=== PATIENT | male | born 1985 | race African-American/Black ===

== ENCOUNTER 2018-01-10 02:37 | Inpatient (IN) | payer BC ==
[2018-01-10] MEDS: IV NORMAL SALINE 1000ML BAG 2,250 ML IV ×3 (05:39→23:00)
[2018-01-10 05:54] LABS: BASO # 0.1 x10^3/uL (0.0-0.2); BASO % 0 % (0-3); EOS % 0 % (0-3); HEMATOCRIT 40.8 % (39.0-53.0); HEMOGLOBIN 13.5 g/dL (13.0-17.5); LYMPH # 1.6 x10^3/uL (1.0-4.8); LYMPH % 6 % (24-48); MEAN CORPUSCULAR HEMOGLOBIN 28 pg (25-35); MEAN CORPUSCULAR HGB CONC 33 g/dL (31-37); MEAN CORPUSCULAR VOLUME 85 fL (79-100); MONO # 2.2 x10^3/uL (0.0-1.1); MONO % 9 % (0-9); NEUT # 20.8 x10^3uL (1.8-7.7); NEUT % 84 % (31-73); PLATELET COUNT 225 x10^3/uL (140-400); RED BLOOD COUNT 4.82 x10^6/uL (4.30-5.70); RED CELL DISTRIBUTION WIDTH 13.3 % (11.5-14.5); WHITE BLOOD COUNT 24.7 x10^3/uL (4.0-11.0)
[2018-01-10 05:57] LABS: ADD MAN DIFF? YES
[2018-01-10] MEDS ORDERED: PIP/TAZO PER PHARMACY MC (06:00)
[2018-01-10 06:08] LABS: ANION GAP 12 (6-14); BLOOD UREA NITROGEN 12 mg/dL (8-26); BUN/CREATININE RATIO 9 (6-20); CALCIUM 8.9 mg/dL (8.5-10.1); CARBON DIOXIDE 23 mmol/L (21-32); CHLORIDE 103 mmol/L (98-107); CREATININE 1.3 mg/dL (0.7-1.3); GFR 78.4; GLUCOSE 117 mg/dL (70-99); SODIUM 138 mmol/L (136-145)
[2018-01-10] MEDS: PIPERACILLIN/TAZOBACTAM 3.375 GM in IV NORMAL SALINE 50ML 50 ML IV ×3 (06:14→17:00)
[2018-01-10 06:15] LABS: LACTIC ACID 1.5 mmol/L (0.4-2.0)
[2018-01-10 06:22] LABS: ALBUMIN 3.4 g/dL (3.4-5.0); ALBUMIN/GLOBULIN RATIO 0.8 (1.0-1.7); ALK PHOS 110 U/L (46-116); ALT (SGPT) 41 U/L (16-63); AST (SGOT) 25 U/L (15-37); TOTAL BILIRUBIN 0.9 mg/dL (0.2-1.0); TOTAL PROTEIN 7.5 g/dL (6.4-8.2)
[2018-01-10] MEDS ORDERED: ONDANSETRON PF 4 MG/2 ML VIAL. IV ×2 (06:30→14:00)
[2018-01-10] MEDS ORDERED: CONTRAST GIVEN MC (06:30)
[2018-01-10] MEDS: IOHEXOL 300 MG/ML 100ML VIAL. IV (06:41)
[2018-01-10 06:45] LABS: BILIRUBIN,URINE NEGATIVE (NEG); CLARITY,URINE CLEAR; COLOR,URINE YELLOW; GLUCOSE,URINE NEGATIVE (NEG); NITRITE,URINE NEGATIVE (NEG); PROTEIN,URINE NEGATIVE (NEG-TRACE)
[2018-01-10 07:01] LABS: BACTERIA,URINE 0 /HPF (0-FEW)
[2018-01-10 07:02] LABS: SQUAMOUS EPITHELIAL CELL,UR FEW /LPF
[2018-01-10] MEDS: VANCOMYCIN 2 GM in IV 1/2 NORMAL SALINE 500 ML IV (07:05)
[2018-01-10 08:30] LABS: PLT ESTIMATE ADEQUATE (ADEQUATE)
[2018-01-10 08:43] LABS: % BANDS 1 % (0-9); % SEGS 89 % (35-66)
[2018-01-10 08:44] LABS: % LYMPHS 4 % (24-48); % MONOS 6 % (0-10)
[2018-01-10] MEDS: VANCOMYCIN PER PHARMACY MC (09:47)
[2018-01-10] MEDS: IV NORMAL SALINE 1000ML BAG 1,000 ML IV ×5 (10:40→23:00)
[2018-01-10] MEDS: ACETAMINOPHEN 325 MG TABLET. PO (11:17)
[2018-01-10] MEDS: fentaNYL PF VIAL 100 MCG/2 ML VIAL IV ×3 (13:04→19:47)
[2018-01-10] MEDS: CLINDAMYCIN 600MG PREMIX 50 ML IV ×3 (13:35→22:56)
[2018-01-10] MEDS ORDERED: traMADol 50 MG TABLET PO (14:00)
[2018-01-10] MEDS ORDERED: DOCUSATE SODIUM 100 MG CAPSULE. PO (14:00)
[2018-01-10 14:41] LABS: CREATINE KINASE 368 U/L (39-308)
[2018-01-10 14:41] LABS: C-REACTIVE PROTEIN 188.6 mg/L (0-3.3)
[2018-01-10] MEDS: ENOXAPARIN 40 MG/0.4 ML SYRINGE. SQ (15:02)
[2018-01-10] MEDS: VANCOMYCIN 1.5 GM in IV 1/2 NORMAL SALINE 500 ML IV ×2 (15:02→22:57)
[2018-01-10 15:21] LABS: SEDIMENTATION RATE 50 (0-15)
[2018-01-10 16:49] LABS: PROCALCITONIN 0.32 ng/mL (0.00-0.10)
[2018-01-10] MEDS: LACTOBACILLUS RHAMNOSUS GG 1 CAPSULE. PO (19:45)
[2018-01-10] MEDS: MORPHINE SULFATE 4 MG/ML DISP.SYRIN. IV (22:57)
[2018-01-11] MEDS: PIPERACILLIN/TAZOBACTAM 3.375 GM in IV NORMAL SALINE 50ML 50 ML IV ×4 (00:46→17:55)
[2018-01-11] MEDS: IV NORMAL SALINE 1000ML BAG 1,000 ML IV ×3 (02:22→12:04)
[2018-01-11] MEDS: fentaNYL PF VIAL 100 MCG/2 ML VIAL IV ×3 (03:06→17:14)
[2018-01-11] MEDS: ACETAMINOPHEN 325 MG TABLET. PO (03:12)
[2018-01-11] MEDS: CLINDAMYCIN 600MG PREMIX 50 ML IV ×3 (06:19→21:36)
[2018-01-11] MEDS: MORPHINE SULFATE 4 MG/ML DISP.SYRIN. IV ×4 (06:19→17:21)
[2018-01-11 06:41] LABS: ADD MAN DIFF? NO
[2018-01-11 06:58] LABS: ANION GAP 10 (6-14); BLOOD UREA NITROGEN 9 mg/dL (8-26); CALCIUM 8.2 mg/dL (8.5-10.1); CARBON DIOXIDE 25 mmol/L (21-32); CHLORIDE 101 mmol/L (98-107); CREATININE 1.3 mg/dL (0.7-1.3); GFR 78.4; GLUCOSE 135 mg/dL (70-99); POTASSIUM 3.4 mmol/L (3.5-5.1); SODIUM 136 mmol/L (136-145)
[2018-01-11 07:15] LABS: VANC TR 12.5 mcg/mL (10.0-20.0)
[2018-01-11 07:22] LABS: BASO # 0.1 x10^3/uL (0.0-0.2); BASO % 0 % (0-3); EOS # 0.1 x10^3/uL (0.0-0.7); EOS % 0 % (0-3); HEMOGLOBIN 11.5 g/dL (13.0-17.5); LYMPH # 1.7 x10^3/uL (1.0-4.8); LYMPH % 8 % (24-48); MEAN CORPUSCULAR HEMOGLOBIN 28 pg (25-35); MEAN CORPUSCULAR HGB CONC 33 g/dL (31-37); MEAN CORPUSCULAR VOLUME 85 fL (79-100); MONO # 1.9 x10^3/uL (0.0-1.1); MONO % 9 % (0-9); NEUT # 17.4 x10^3uL (1.8-7.7); NEUT % 82 % (31-73); PLATELET COUNT 205 x10^3/uL (140-400); RED CELL DISTRIBUTION WIDTH 13.3 % (11.5-14.5); WHITE BLOOD COUNT 21.2 x10^3/uL (4.0-11.0)
[2018-01-11] MEDS: oxyCODONE/APAP 5/325 1 TAB TABLET PO (09:16)
[2018-01-11] MEDS: LACTOBACILLUS RHAMNOSUS GG 1 CAPSULE. PO ×2 (09:16→21:36)
[2018-01-11] MEDS: VANCOMYCIN 1.5 GM in IV 1/2 NORMAL SALINE 500 ML IV ×3 (09:16→22:50)
[2018-01-11] MEDS ORDERED: POTASSIUM CHLORIDE 20 MEQ TABLET.ER. PO (11:00)
[2018-01-11 11:22] LABS: CREATINE KINASE 231 U/L (39-308)
[2018-01-11] MEDS ORDERED: ONDANSETRON PF 4 MG/2 ML VIAL. IV (12:00)
[2018-01-11] MEDS ORDERED: LIDOCAINE 1% PF 2 ML VIAL. ID (12:00)
[2018-01-11] MEDS ORDERED: fentaNYL PF VIAL 100 MCG/2 ML VIAL IV ×2 (12:00→16:15)
[2018-01-11] MEDS ORDERED: HYDROmorphone 2 MG/ML VIAL IV (12:00)
[2018-01-11] MEDS ORDERED: PROCHLORPERAZINE 10 MG/2 ML VIAL. IV (12:00)
[2018-01-11] MEDS ORDERED: PROPOFOL 20 ML IV (14:13)
[2018-01-11] MEDS ORDERED: fentaNYL PF VIAL 100 MCG/2 ML VIAL ×2 (14:13→15:40)
[2018-01-11] MEDS: IV RINGERS,LACTATED 1000ML 1,000 ML IV (14:16)
[2018-01-11] MEDS: VANCOMYCIN PER PHARMACY MC (14:23)
[2018-01-11] MEDS ORDERED: DEXAMETHASONE SOD PHOS 20 MG/5 ML VIAL. (15:20)
[2018-01-11] MEDS ORDERED: SEVOFLURANE 31 TO 60 MINUTES. IH (15:20)
[2018-01-11] MEDS ORDERED: ONDANSETRON PF 4 MG/2 ML VIAL. (15:20)
[2018-01-11] MEDS: BUPIVACAINE-EPI 0.25%-1:200000 50 ML VIAL. (15:35)
[2018-01-11] MEDS ORDERED: HYDROcodone/APAP 7.5/325MG 1 TAB TABLET PO (16:15)
[2018-01-11] MEDS ORDERED: MORPHINE SULFATE 4 MG/ML DISP.SYRIN. IV ×2 (16:15)
[2018-01-11] MEDS ORDERED: oxyCODONE IR 5 MG TABLET PO (16:15)
[2018-01-11] MEDS ORDERED: POLYETHYLENE GLYCOL 3350 17 GM PACKET. PO (16:15)
[2018-01-11] MEDS ORDERED: DEXTROSE 50% 25 GM / 50ML DISP.SYRIN. IV (16:15)
[2018-01-11] MEDS: POTASSIUM CHLORIDE 20 MEQ TABLET.ER. PO (17:54)
[2018-01-11] MEDS: ENOXAPARIN 40 MG/0.4 ML SYRINGE. SQ (17:54)
[2018-01-11] MEDS: oxyCODONE IR 5 MG TABLET PO (21:40)
[2018-01-12] MEDS: PIPERACILLIN/TAZOBACTAM 3.375 GM in IV NORMAL SALINE 50ML 50 ML IV ×5 (00:54→23:53)
[2018-01-12] MEDS: oxyCODONE IR 5 MG TABLET PO ×2 (00:56→06:49)
[2018-01-12] MEDS: IV NORMAL SALINE 1000ML BAG 1,000 ML IV ×3 (03:29→15:06)
[2018-01-12] MEDS ORDERED: MAGNESIUM HYDROXIDE 2,400 MG/30 ML ORAL.SUSP. PO (06:00)
[2018-01-12] MEDS: CLINDAMYCIN 600MG PREMIX 50 ML IV ×3 (06:11→21:53)
[2018-01-12] MEDS: VANCOMYCIN 1.5 GM in IV 1/2 NORMAL SALINE 500 ML IV (07:31)
[2018-01-12] MEDS: LACTOBACILLUS RHAMNOSUS GG 1 CAPSULE. PO ×2 (08:18→20:29)
[2018-01-12] MEDS: SENNOSIDES/DOCUSATE 8.6/50MG TABLET. PO (08:18)
[2018-01-12 09:53] LABS: ADD MAN DIFF? NO
[2018-01-12 09:59] LABS: BASO % 0 % (0-3); EOS % 0 % (0-3); HEMATOCRIT 36.7 % (39.0-53.0); HEMOGLOBIN 11.7 g/dL (13.0-17.5); LYMPH # 1.3 x10^3/uL (1.0-4.8); LYMPH % 6 % (24-48); MEAN CORPUSCULAR HEMOGLOBIN 28 pg (25-35); MEAN CORPUSCULAR HGB CONC 32 g/dL (31-37); MEAN CORPUSCULAR VOLUME 86 fL (79-100); MONO # 1.9 x10^3/uL (0.0-1.1); MONO % 8 % (0-9); NEUT # 20.8 x10^3uL (1.8-7.7); NEUT % 87 % (31-73); PLATELET COUNT 246 x10^3/uL (140-400); RED BLOOD COUNT 4.27 x10^6/uL (4.30-5.70); RED CELL DISTRIBUTION WIDTH 13.4 % (11.5-14.5)
[2018-01-12] MEDS: fentaNYL PF VIAL 100 MCG/2 ML VIAL IV (11:04)
[2018-01-12 11:41] LABS: ANION GAP 12 (6-14); BLOOD UREA NITROGEN 22 mg/dL (8-26); CALCIUM 7.8 mg/dL (8.5-10.1); CARBON DIOXIDE 24 mmol/L (21-32); CHLORIDE 104 mmol/L (98-107); CREATININE 2.4 mg/dL (0.7-1.3); GFR 38.7; GLUCOSE 120 mg/dL (70-99); POTASSIUM 4.7 mmol/L (3.5-5.1); SODIUM 140 mmol/L (136-145)
[2018-01-12] MEDS: VANCOMYCIN PER PHARMACY MC (14:05)
[2018-01-12] MEDS: ENOXAPARIN 40 MG/0.4 ML SYRINGE. SQ (15:00)
[2018-01-12] MEDS ORDERED: BISACODYL 10 MG SUPP.RECT. PR (16:00)
[2018-01-12] MEDS: oxyCODONE/APAP 5/325 1 TAB TABLET PO (20:30)
[2018-01-13] MEDS: IV NORMAL SALINE 1000ML BAG 1,000 ML IV ×3 (02:25→22:21)
[2018-01-13] MEDS: oxyCODONE/APAP 5/325 1 TAB TABLET PO ×2 (02:32→17:22)
[2018-01-13] MEDS: CLINDAMYCIN 600MG PREMIX 50 ML IV (05:28)
[2018-01-13] MEDS: PIPERACILLIN/TAZOBACTAM 3.375 GM in IV NORMAL SALINE 50ML 50 ML IV (06:14)
[2018-01-13] MEDS: IV RINGERS,LACTATED 1000ML 1,000 ML IV (07:00)
[2018-01-13] MEDS ORDERED: MORPHINE SULFATE 2 MG/ML DISP.SYRIN. IV (07:00)
[2018-01-13] MEDS ORDERED: fentaNYL PF VIAL 100 MCG/2 ML VIAL IV ×2 (07:00→14:45)
[2018-01-13] MEDS ORDERED: LIDOCAINE 1% PF 2 ML VIAL. ID (07:00)
[2018-01-13] MEDS ORDERED: PROCHLORPERAZINE 10 MG/2 ML VIAL. IV (07:00)
[2018-01-13] MEDS ORDERED: ONDANSETRON PF 4 MG/2 ML VIAL. IV ×2 (07:00→14:45)
[2018-01-13] MEDS: LACTOBACILLUS RHAMNOSUS GG 1 CAPSULE. PO ×2 (09:00→20:56)
[2018-01-13] MEDS: SENNOSIDES/DOCUSATE 8.6/50MG TABLET. PO ×2 (09:00→17:21)
[2018-01-13] MEDS: CEFEPIME HCL IV Push 1 GM VIAL. IVP ×2 (09:00→20:57)
[2018-01-13 09:45] LABS: ADD MAN DIFF? NO
[2018-01-13 10:00] LABS: BASO % 0 % (0-3); EOS # 0.1 x10^3/uL (0.0-0.7); EOS % 0 % (0-3); HEMATOCRIT 35.3 % (39.0-53.0); HEMOGLOBIN 11.6 g/dL (13.0-17.5); LYMPH # 1.9 x10^3/uL (1.0-4.8); LYMPH % 9 % (24-48); MEAN CORPUSCULAR HEMOGLOBIN 28 pg (25-35); MEAN CORPUSCULAR HGB CONC 33 g/dL (31-37); MEAN CORPUSCULAR VOLUME 86 fL (79-100); MONO # 1.7 x10^3/uL (0.0-1.1); MONO % 9 % (0-9); NEUT # 16.5 x10^3uL (1.8-7.7); NEUT % 82 % (31-73); PLATELET COUNT 266 x10^3/uL (140-400); RED BLOOD COUNT 4.13 x10^6/uL (4.30-5.70); RED CELL DISTRIBUTION WIDTH 13.3 % (11.5-14.5); WHITE BLOOD COUNT 20.2 x10^3/uL (4.0-11.0)
[2018-01-13 10:15] LABS: ALBUMIN 2.1 g/dL (3.4-5.0); ALBUMIN/GLOBULIN RATIO 0.5 (1.0-1.7); ALK PHOS 87 U/L (46-116); ALT (SGPT) 48 U/L (16-63); ANION GAP 14 (6-14); AST (SGOT) 32 U/L (15-37); BLOOD UREA NITROGEN 35 mg/dL (8-26); BUN/CREATININE RATIO 11 (6-20); CALCIUM 7.6 mg/dL (8.5-10.1); CARBON DIOXIDE 21 mmol/L (21-32); CHLORIDE 108 mmol/L (98-107); CREATININE 3.3 mg/dL (0.7-1.3); GFR 26.8; GLUCOSE 92 mg/dL (70-99); POTASSIUM 3.8 mmol/L (3.5-5.1); SODIUM 143 mmol/L (136-145); TOTAL BILIRUBIN 0.7 mg/dL (0.2-1.0); TOTAL PROTEIN 6.6 g/dL (6.4-8.2)
[2018-01-13] MEDS ORDERED: DEXAMETHASONE SOD PHOS 20 MG/5 ML VIAL. (12:27)
[2018-01-13] MEDS ORDERED: PROPOFOL 40 ML IV (12:27)
[2018-01-13] MEDS ORDERED: ONDANSETRON PF 4 MG/2 ML VIAL. (12:27)
[2018-01-13] MEDS ORDERED: fentaNYL PF VIAL 100 MCG/2 ML VIAL ×3 (12:27→15:36)
[2018-01-13] MEDS ORDERED: LIDOCAINE 1% PF 5 ML VIAL. (12:27)
[2018-01-13] MEDS ORDERED: POLYVINYL ALCOHOL 1.4% OPHTH SOLUTION 15ML BOTTLE. OU (13:45)
[2018-01-13] MEDS: BUPIVACAINE-EPI 0.25%-1:200000 50 ML VIAL. (14:00)
[2018-01-13] MEDS ORDERED: PHENYLEPHRINE in 0.9% NACL PF 1 MG/10 ML SYRINGE. IV (14:06)
[2018-01-13] MEDS ORDERED: MORPHINE SULFATE 4 MG/ML DISP.SYRIN. IV ×2 (14:45)
[2018-01-13] MEDS ORDERED: HYDROcodone/APAP 7.5/325MG 1 TAB TABLET PO ×2 (14:45)
[2018-01-13] MEDS ORDERED: DEXTROSE 50% 25 GM / 50ML DISP.SYRIN. IV (14:45)
[2018-01-13] MEDS ORDERED: oxyCODONE IR 5 MG TABLET PO (14:45)
[2018-01-13] MEDS ORDERED: POLYETHYLENE GLYCOL 3350 17 GM PACKET. PO (14:45)
[2018-01-13] MEDS: fentaNYL PF VIAL 100 MCG/2 ML VIAL IV ×4 (15:09→16:04)
[2018-01-13] MEDS: ENOXAPARIN 40 MG/0.4 ML SYRINGE. SQ (17:23)
[2018-01-13] MEDS ORDERED: CEFEPIME HCL 1 GM in IV DEXTROSE 5% 50 ML IV (21:00)
[2018-01-13] MEDS: HYDROcodone/APAP 7.5/325MG 1 TAB TABLET PO (21:02)
[2018-01-14] MEDS: oxyCODONE/APAP 5/325 1 TAB TABLET PO ×3 (05:09→20:52)
[2018-01-14] MEDS ORDERED: MAGNESIUM HYDROXIDE 2,400 MG/30 ML ORAL.SUSP. PO (06:00)
[2018-01-14 07:07] LABS: ADD MAN DIFF? NO
[2018-01-14 07:22] LABS: BASO # 0.1 x10^3/uL (0.0-0.2); BASO % 0 % (0-3); EOS # 0.2 x10^3/uL (0.0-0.7); EOS % 1 % (0-3); HEMATOCRIT 34.2 % (39.0-53.0); HEMOGLOBIN 11.4 g/dL (13.0-17.5); LYMPH # 2.3 x10^3/uL (1.0-4.8); LYMPH % 11 % (24-48); MEAN CORPUSCULAR HEMOGLOBIN 28 pg (25-35); MEAN CORPUSCULAR HGB CONC 33 g/dL (31-37); MEAN CORPUSCULAR VOLUME 85 fL (79-100); MONO # 1.6 x10^3/uL (0.0-1.1); MONO % 8 % (0-9); NEUT # 16.3 x10^3uL (1.8-7.7); NEUT % 80 % (31-73); PLATELET COUNT 302 x10^3/uL (140-400); RED BLOOD COUNT 4.01 x10^6/uL (4.30-5.70); RED CELL DISTRIBUTION WIDTH 13.7 % (11.5-14.5); WHITE BLOOD COUNT 20.5 x10^3/uL (4.0-11.0)
[2018-01-14] MEDS: IV NORMAL SALINE 1000ML BAG 1,000 ML IV ×3 (07:27→19:01)
[2018-01-14 07:31] LABS: ALBUMIN 2.1 g/dL (3.4-5.0); ALBUMIN/GLOBULIN RATIO 0.4 (1.0-1.7); ALK PHOS 78 U/L (46-116); ALT (SGPT) 48 U/L (16-63); ANION GAP 9 (6-14); AST (SGOT) 24 U/L (15-37); BLOOD UREA NITROGEN 37 mg/dL (8-26); BUN/CREATININE RATIO 11 (6-20); CALCIUM 7.8 mg/dL (8.5-10.1); CARBON DIOXIDE 24 mmol/L (21-32); CHLORIDE 107 mmol/L (98-107); CREATININE 3.3 mg/dL (0.7-1.3); GFR 26.8; GLUCOSE 120 mg/dL (70-99); SODIUM 140 mmol/L (136-145); TOTAL BILIRUBIN 0.4 mg/dL (0.2-1.0); TOTAL PROTEIN 7.1 g/dL (6.4-8.2)
[2018-01-14] MEDS: LACTOBACILLUS RHAMNOSUS GG 1 CAPSULE. PO ×2 (08:45→20:51)
[2018-01-14] MEDS: SENNOSIDES/DOCUSATE 8.6/50MG TABLET. PO ×2 (08:45→08:51)
[2018-01-14] MEDS: CEFEPIME HCL IV Push 1 GM VIAL. IVP ×2 (08:45→21:03)
[2018-01-14 12:33] LABS: BILIRUBIN,URINE NEGATIVE (NEG); CLARITY,URINE CLEAR; COLOR,URINE YELLOW; GLUCOSE,URINE NEGATIVE (NEG); NITRITE,URINE NEGATIVE (NEG); PROTEIN,URINE NEGATIVE (NEG-TRACE); UROBILINOGEN,URINE 0.2 mg/dL (0.2 mg/dL)
[2018-01-14 12:42] LABS: BACTERIA,URINE FEW /HPF (0-FEW); RBC,URINE 0 /HPF (0-2); SQUAMOUS EPITHELIAL CELL,UR OCC /LPF
[2018-01-14] MEDS: ENOXAPARIN 40 MG/0.4 ML SYRINGE. SQ (15:01)
[2018-01-14] MEDS ORDERED: BISACODYL 10 MG SUPP.RECT. PR (16:00)
[2018-01-14] MEDS: ONDANSETRON PF 4 MG/2 ML VIAL. IV (22:19)
[2018-01-15] MEDS: ACETAMINOPHEN 325 MG TABLET. PO ×2 (03:16→20:19)
[2018-01-15] MEDS: IV NORMAL SALINE 1000ML BAG 1,000 ML IV ×2 (05:25→17:32)
[2018-01-15] MEDS: CEFEPIME HCL IV Push 1 GM VIAL. IVP (09:15)
[2018-01-15] MEDS: LACTOBACILLUS RHAMNOSUS GG 1 CAPSULE. PO ×2 (09:15→20:18)
[2018-01-15] MEDS: SENNOSIDES/DOCUSATE 8.6/50MG TABLET. PO (09:15)
[2018-01-15 09:57] LABS: ADD MAN DIFF? NO
[2018-01-15 09:59] LABS: BASO # 0.1 x10^3/uL (0.0-0.2); BASO % 1 % (0-3); EOS # 0.4 x10^3/uL (0.0-0.7); EOS % 2 % (0-3); HEMATOCRIT 36.3 % (39.0-53.0); HEMOGLOBIN 12.1 g/dL (13.0-17.5); LYMPH # 2.1 x10^3/uL (1.0-4.8); LYMPH % 9 % (24-48); MEAN CORPUSCULAR HEMOGLOBIN 28 pg (25-35); MEAN CORPUSCULAR HGB CONC 33 g/dL (31-37); MEAN CORPUSCULAR VOLUME 85 fL (79-100); MONO # 1.4 x10^3/uL (0.0-1.1); MONO % 6 % (0-9); NEUT # 18.9 x10^3uL (1.8-7.7); NEUT % 83 % (31-73); PLATELET COUNT 339 x10^3/uL (140-400); RED BLOOD COUNT 4.26 x10^6/uL (4.30-5.70); RED CELL DISTRIBUTION WIDTH 13.8 % (11.5-14.5); WHITE BLOOD COUNT 22.9 x10^3/uL (4.0-11.0)
[2018-01-15 10:27] LABS: ALBUMIN 2.1 g/dL (3.4-5.0); ALBUMIN/GLOBULIN RATIO 0.4 (1.0-1.7); ALK PHOS 87 U/L (46-116); ALT (SGPT) 42 U/L (16-63); ANION GAP 12 (6-14); AST (SGOT) 24 U/L (15-37); BLOOD UREA NITROGEN 34 mg/dL (8-26); BUN/CREATININE RATIO 10 (6-20); CALCIUM 8.3 mg/dL (8.5-10.1); CARBON DIOXIDE 23 mmol/L (21-32); CHLORIDE 108 mmol/L (98-107); CREATININE 3.3 mg/dL (0.7-1.3); GFR 26.8; GLUCOSE 127 mg/dL (70-99); POTASSIUM 3.8 mmol/L (3.5-5.1); SODIUM 143 mmol/L (136-145); TOTAL BILIRUBIN 0.6 mg/dL (0.2-1.0); TOTAL PROTEIN 6.9 g/dL (6.4-8.2)
[2018-01-15] MEDS: metroNIDAZOLE 500 MG TABLET PO ×2 (13:28→22:07)
[2018-01-15] MEDS: ENOXAPARIN 40 MG/0.4 ML SYRINGE. SQ (14:56)
[2018-01-15] MEDS ORDERED: ERYTHROMYCIN 0.5% OPHTH OINTMENT 1GM TUBE. OU (15:00)
[2018-01-15] MEDS: ERYTHROMYCIN 0.5% OPHTH OINTMENT 1GM TUBE. OU ×2 (17:30→22:07)
[2018-01-15] MEDS: CEFPODOXIME PROXETIL 100 MG TABLET. PO (20:18)
[2018-01-15] MEDS: HYDROcodone/APAP 7.5/325MG 1 TAB TABLET PO (20:21)
[2018-01-15] MEDS: ONDANSETRON PF 4 MG/2 ML VIAL. IV (20:25)
[2018-01-16] MEDS: IV NORMAL SALINE 1000ML BAG 1,000 ML IV ×3 (03:28→23:56)
[2018-01-16 05:39] LABS: ADD MAN DIFF? NO
[2018-01-16 05:57] LABS: BASO # 0.1 x10^3/uL (0.0-0.2); BASO % 1 % (0-3); EOS # 0.5 x10^3/uL (0.0-0.7); EOS % 3 % (0-3); HEMATOCRIT 36.2 % (39.0-53.0); HEMOGLOBIN 11.9 g/dL (13.0-17.5); LYMPH # 2.5 x10^3/uL (1.0-4.8); LYMPH % 12 % (24-48); MEAN CORPUSCULAR HEMOGLOBIN 28 pg (25-35); MEAN CORPUSCULAR HGB CONC 33 g/dL (31-37); MEAN CORPUSCULAR VOLUME 86 fL (79-100); MONO # 1.5 x10^3/uL (0.0-1.1); MONO % 7 % (0-9); NEUT # 15.6 x10^3uL (1.8-7.7); NEUT % 77 % (31-73); PLATELET COUNT 324 x10^3/uL (140-400); RED CELL DISTRIBUTION WIDTH 13.5 % (11.5-14.5); WHITE BLOOD COUNT 20.2 x10^3/uL (4.0-11.0)
[2018-01-16] MEDS: metroNIDAZOLE 500 MG TABLET PO ×3 (05:59→22:28)
[2018-01-16] MEDS: oxyCODONE IR 5 MG TABLET PO (06:00)
[2018-01-16 06:30] LABS: ALBUMIN 2.2 g/dL (3.4-5.0); ALBUMIN/GLOBULIN RATIO 0.4 (1.0-1.7); ALK PHOS 81 U/L (46-116); ALT (SGPT) 47 U/L (16-63); ANION GAP 12 (6-14); AST (SGOT) 28 U/L (15-37); BLOOD UREA NITROGEN 34 mg/dL (8-26); BUN/CREATININE RATIO 11 (6-20); CALCIUM 8.6 mg/dL (8.5-10.1); CARBON DIOXIDE 22 mmol/L (21-32); CHLORIDE 108 mmol/L (98-107); CREATININE 3.1 mg/dL (0.7-1.3); GFR 28.8; GLUCOSE 85 mg/dL (70-99); POTASSIUM 4.1 mmol/L (3.5-5.1); SODIUM 142 mmol/L (136-145); TOTAL BILIRUBIN 0.4 mg/dL (0.2-1.0); TOTAL PROTEIN 7.1 g/dL (6.4-8.2)
[2018-01-16] MEDS: ERYTHROMYCIN 0.5% OPHTH OINTMENT 1GM TUBE. OU ×4 (08:31→21:07)
[2018-01-16] MEDS: CEFPODOXIME PROXETIL 100 MG TABLET. PO ×2 (08:31→21:07)
[2018-01-16] MEDS: LACTOBACILLUS RHAMNOSUS GG 1 CAPSULE. PO ×2 (08:31→21:07)
[2018-01-16] MEDS: SENNOSIDES/DOCUSATE 8.6/50MG TABLET. PO (08:33)
[2018-01-16] MEDS: ONDANSETRON PF 4 MG/2 ML VIAL. IV (14:35)
[2018-01-16] MEDS: oxyCODONE/APAP 5/325 1 TAB TABLET PO (14:35)
[2018-01-16] MEDS: ENOXAPARIN 40 MG/0.4 ML SYRINGE. SQ (14:35)
[2018-01-17 05:08] LABS: ADD MAN DIFF? NO
[2018-01-17 05:23] LABS: BASO # 0.1 x10^3/uL (0.0-0.2); BASO % 0 % (0-3); EOS # 0.5 x10^3/uL (0.0-0.7); EOS % 3 % (0-3); HEMOGLOBIN 10.9 g/dL (13.0-17.5); LYMPH % 11 % (24-48); MEAN CORPUSCULAR HEMOGLOBIN 28 pg (25-35); MEAN CORPUSCULAR HGB CONC 33 g/dL (31-37); MEAN CORPUSCULAR VOLUME 86 fL (79-100); MONO # 1.3 x10^3/uL (0.0-1.1); MONO % 7 % (0-9); NEUT % 79 % (31-73); PLATELET COUNT 363 x10^3/uL (140-400); RED BLOOD COUNT 3.86 x10^6/uL (4.30-5.70); RED CELL DISTRIBUTION WIDTH 13.7 % (11.5-14.5); WHITE BLOOD COUNT 18.9 x10^3/uL (4.0-11.0)
[2018-01-17] MEDS: IV NORMAL SALINE 1000ML BAG 1,000 ML IV ×2 (05:27→08:27)
[2018-01-17 05:55] LABS: ALBUMIN 2.1 g/dL (3.4-5.0); ALBUMIN/GLOBULIN RATIO 0.4 (1.0-1.7); ALK PHOS 78 U/L (46-116); ALT (SGPT) 57 U/L (16-63); ANION GAP 9 (6-14); AST (SGOT) 34 U/L (15-37); BLOOD UREA NITROGEN 26 mg/dL (8-26); BUN/CREATININE RATIO 10 (6-20); CALCIUM 8.5 mg/dL (8.5-10.1); CARBON DIOXIDE 25 mmol/L (21-32); CHLORIDE 109 mmol/L (98-107); CREATININE 2.7 mg/dL (0.7-1.3); GFR 33.7; GLUCOSE 97 mg/dL (70-99); SODIUM 143 mmol/L (136-145); TOTAL BILIRUBIN 0.3 mg/dL (0.2-1.0); TOTAL PROTEIN 6.8 g/dL (6.4-8.2)
[2018-01-17] MEDS: metroNIDAZOLE 500 MG TABLET PO ×4 (05:55→21:04)
[2018-01-17] MEDS: CEFPODOXIME PROXETIL 100 MG TABLET. PO ×2 (08:20→21:04)
[2018-01-17] MEDS: SENNOSIDES/DOCUSATE 8.6/50MG TABLET. PO ×2 (08:20→08:23)
[2018-01-17] MEDS: HYDROcodone/APAP 7.5/325MG 1 TAB TABLET PO (08:20)
[2018-01-17] MEDS: LACTOBACILLUS RHAMNOSUS GG 1 CAPSULE. PO ×2 (08:21→21:04)
[2018-01-17] MEDS: hydrALAZINE 20 MG/ML VIAL. IVP (08:21)
[2018-01-17] MEDS: ERYTHROMYCIN 0.5% OPHTH OINTMENT 1GM TUBE. OU ×4 (08:23→21:04)
[2018-01-17] MEDS: ONDANSETRON PF 4 MG/2 ML VIAL. IV (13:21)
[2018-01-17] MEDS: ENOXAPARIN 40 MG/0.4 ML SYRINGE. SQ ×2 (14:18→21:03)
[2018-01-17] MEDS: PANTOPRAZOLE 40 MG TABLET.DR. PO (15:30)
[2018-01-17] MEDS: amLODIPine BESYLATE 5 MG TABLET PO (16:18)
[2018-01-17] MEDS: IV DEXTROSE 5 %-0.45 % NACL 1,000 ML IV (16:21)
[2018-01-17] MEDS ORDERED: FAMOTIDINE 20 MG/2 ML VIAL IVP (21:00)
[2018-01-18] MEDS: metroNIDAZOLE 500 MG TABLET PO ×3 (05:33→20:37)
[2018-01-18] MEDS: IV DEXTROSE 5 %-0.45 % NACL 1,000 ML IV (05:33)
[2018-01-18] MEDS: PANTOPRAZOLE 40 MG TABLET.DR. PO (08:39)
[2018-01-18] MEDS: amLODIPine BESYLATE 5 MG TABLET PO (08:39)
[2018-01-18] MEDS: LACTOBACILLUS RHAMNOSUS GG 1 CAPSULE. PO ×2 (08:39→20:37)
[2018-01-18] MEDS: ERYTHROMYCIN 0.5% OPHTH OINTMENT 1GM TUBE. OU ×4 (08:40→20:38)
[2018-01-18] MEDS: SENNOSIDES/DOCUSATE 8.6/50MG TABLET. PO (08:40)
[2018-01-18] MEDS: ENOXAPARIN 40 MG/0.4 ML SYRINGE. SQ ×2 (08:40→20:38)
[2018-01-18] MEDS: CEFPODOXIME PROXETIL 100 MG TABLET. PO ×2 (08:40→20:37)
[2018-01-18] MEDS ORDERED: MAGNESIUM SULFATE 2GM 50 ML IV (10:30)
[2018-01-18 11:40] LABS: HEMATOCRIT 36.1 % (39.0-53.0); HEMOGLOBIN 12.2 g/dL (13.0-17.5); MEAN CORPUSCULAR HEMOGLOBIN 29 pg (25-35); MEAN CORPUSCULAR HGB CONC 34 g/dL (31-37); MEAN CORPUSCULAR VOLUME 85 fL (79-100); PLATELET COUNT 373 x10^3/uL (140-400); RED BLOOD COUNT 4.27 x10^6/uL (4.30-5.70); RED CELL DISTRIBUTION WIDTH 13.5 % (11.5-14.5)
[2018-01-18 12:00] LABS: ALBUMIN 2.5 g/dL (3.4-5.0); ALBUMIN/GLOBULIN RATIO 0.6 (1.0-1.7); ALK PHOS 89 U/L (46-116); ALT (SGPT) 88 U/L (16-63); ANION GAP 9 (6-14); AST (SGOT) 55 U/L (15-37); BLOOD UREA NITROGEN 20 mg/dL (8-26); BUN/CREATININE RATIO 9 (6-20); CALCIUM 8.6 mg/dL (8.5-10.1); CARBON DIOXIDE 26 mmol/L (21-32); CHLORIDE 105 mmol/L (98-107); CREATININE 2.3 mg/dL (0.7-1.3); GFR 40.6; GLUCOSE 139 mg/dL (70-99); POTASSIUM 4.1 mmol/L (3.5-5.1); SODIUM 140 mmol/L (136-145); TOTAL BILIRUBIN 0.2 mg/dL (0.2-1.0); TOTAL PROTEIN 6.7 g/dL (6.4-8.2)
[2018-01-18 12:49] LABS: SEDIMENTATION RATE 88 (0-15)
[2018-01-18] MEDS: ACETAMINOPHEN 325 MG TABLET. PO (22:59)
[2018-01-19] MEDS: metroNIDAZOLE 500 MG TABLET PO ×2 (05:49→13:19)
[2018-01-19] MEDS: PANTOPRAZOLE 40 MG TABLET.DR. PO (05:49)
[2018-01-19 07:26] LABS: HEMATOCRIT 35.7 % (39.0-53.0); HEMOGLOBIN 11.7 g/dL (13.0-17.5); MEAN CORPUSCULAR HEMOGLOBIN 28 pg (25-35); MEAN CORPUSCULAR HGB CONC 33 g/dL (31-37); MEAN CORPUSCULAR VOLUME 86 fL (79-100); PLATELET COUNT 390 x10^3/uL (140-400); RED BLOOD COUNT 4.16 x10^6/uL (4.30-5.70); RED CELL DISTRIBUTION WIDTH 13.7 % (11.5-14.5); WHITE BLOOD COUNT 19.8 x10^3/uL (4.0-11.0)
[2018-01-19 08:06] LABS: ALBUMIN 2.4 g/dL (3.4-5.0); ANION GAP 7 (6-14); BLOOD UREA NITROGEN 17 mg/dL (8-26); CALCIUM 8.7 mg/dL (8.5-10.1); CARBON DIOXIDE 29 mmol/L (21-32); CHLORIDE 103 mmol/L (98-107); CREATININE 2.1 mg/dL (0.7-1.3); GFR 45.1; GLUCOSE 76 mg/dL (70-99); MAGNESIUM 2.1 mg/dL (1.8-2.4); PHOSPHORUS 4.6 mg/dL (2.6-4.7); SODIUM 139 mmol/L (136-145)
[2018-01-19] MEDS: LACTOBACILLUS RHAMNOSUS GG 1 CAPSULE. PO (08:42)
[2018-01-19] MEDS: CEFPODOXIME PROXETIL 100 MG TABLET. PO (08:42)
[2018-01-19] MEDS: ENOXAPARIN 40 MG/0.4 ML SYRINGE. SQ (08:42)
[2018-01-19] MEDS: amLODIPine BESYLATE 5 MG TABLET PO (08:43)
[2018-01-19] MEDS: ERYTHROMYCIN 0.5% OPHTH OINTMENT 1GM TUBE. OU ×3 (08:43→17:00)
[2018-01-19] MEDS: SENNOSIDES/DOCUSATE 8.6/50MG TABLET. PO (08:43)
== END 2018-01-19 19:04 | disposition home or self-care (01) | DRG 853 ==
LOC: ER 02:37 → 5 NORTH 06:15
PROC: 0J9M0ZZ Drainage of Left Upper Leg Subcutaneous Tissue and Fascia, Open Approach (ICD-10-PCS; 2018-01-11 14:00)
PROC: 0JBM0ZZ Excision of Left Upper Leg Subcutaneous Tissue and Fascia, Open Approach (ICD-10-PCS; principal; 2018-01-11 15:10)
DX: A41.9 Sepsis, unspecified organism (principal); M72.6 Necrotizing fasciitis; N17.0 Acute kidney failure with tubular necrosis; L02.416 Cutaneous abscess of left lower limb; L03.116 Cellulitis of left lower limb; E87.6 Hypokalemia; I10 Essential (primary) hypertension; K29.70 Gastritis, unspecified, without bleeding; K59.00 Constipation, unspecified; M60.9 Myositis, unspecified
CPT/HCPCS: 36415; 71045; 73700; 74170; 76770; 80048; 80053; 80069; 80202; 81001; 82550; 83605; 83735; 84145; 85007; 85025; 85027; 85651; 86140; 87040; 87071; 87075; 87205; 93005; 93971; 96365; 96366; 96368; 97162-GP; 97166-GO; 97530-GO; 97530-GP; 97535-GO; 99285; 99285-25; J0360; J0692; J1100; J1650; J2020; J2270; J2370; J2405; J2543; J2704; J3010; J3370; J3490; J7030; J7120; Q9967